=== PATIENT | female | born 1960 | race Caucasian/White ===

== ENCOUNTER → 2020-09-26 08:43 | Day surgery (SDC) | payer OTHER ==
--- NOTE | 2020-09-25 10:48 | NUR ---
CONFIRMED PT RIGHT HIP INJECTION 09/26/20 PT HAS MRI SCHEDULED FOR 829 ALSO
--- NOTE | ~2020-09-26 | HEMODYNAMI ---
PATIENT:JUANITA ARENAS MEDICAL RECORD: [id number] : 64 LOCATION:[facility] ADMISSION DATE: 09/26/20 Generatedon:110:55 Patient name: JUANITA ARENAS Patient #: [id number] SSN: : 1960 Date of study: 09/26/2020 Page: Of Hemodynamic Procedure Report Patient Data Patient Demographics Procedure consent was obtained First Name: JUANITA Gender: Female Last Name: DAGOBERTO : 1960 Middle Initial: EMILY Age: 59 year(s) Patient #: [id number] Race: Unknown Additional ID: [id number] Contact details [address]: [address] [place] [address] State: [place] City: [place] Zip code: [address] Admission Admission Data Admission Date: 09/26/2020 Admission Time: 8:43 Procedure Procedure Types Cath Procedure Peripheral Cath Diagnostic Procedure Miscellaneous Procedure Description Procedure Date Procedure Date: 09/26/2020 Procedure Start Time: 10:45 Procedure Staff Name Function Lucille Tracey MD Performing Physician Qamar Grace RT Monitor Procedure Data Cath Procedure Fluoroscopy Diagnostic fluoroscopy Total fluoroscopy Time: 0.4 time: 0.4 min min Diagnostic fluoroscopy Total fluoroscopy dose: 4 dose: 4 mGy mGy Hemodynamics Rest Pre Cath Intra NCS Post Cath Procedure Log Time Note 10:38:00 Qamar Grace RT (R) (CV) sent for patient. Start room use. 10:38:07 Time tracking: Regular hours (M-F 7:00 - 5:00) 10:38:12 Patient received from Other to IR Alert and oriented. Tansferred to table in Supine position. 10:38:14 Signed procedure consent form obtained from patient. 10:38:16 Correct patient and procedure confirmed by team. 10:38:18 Full Disclosure recording started 10:38:18 - 10:38:20 Pre-procedure instructions explained to patient. 10:38:21 Pre-op teaching completed and patient verbalized understanding. 10:38:26 Is patient on blood thinner?No 10:38:53 PT ALLERGIC TO REGLAN,SULFA BIAXCIN AND ARYTHROMYCIN 10:39:04 Right Hip was prepped with chlora-prep and draped in sterile fashion. 10:39:22 SAFE-T PLUS MYELOGRAM TRAY opened to sterile field. 10:45:10 Physician arrived 10:45:11 --------ALL STOP TIME OUT------ 10:45:11 Final Timeout: patient, procedure, and site verified with staff and physician. All members of the team are in agreement. 10:45:13 Right groin site verified by team. 10:45:20 Sedation plan: Local Anesthetic Medication:Lidocaine 10:45:32 Procedure started. 10:45:38 Local anesthetic to Right Hip with Lidocaine 1% by Lucille Tracey MD.INITIA L ACCESS ONLY 10:54:35 Procedure ended.(Physican Out) 10:54:52 BANDAIDE APPLIED SITE STABLE PT SENT HOME 10:55:05 Fluoroscopy time 00.40 minutes. 10:55:09 Fluoroscopy dose: 4 mGy 10:55:09 Flurop Dose total: 4 Device Usage Item Name Manufacture Quantity Catalog Hospital Part Current Minimal Lot# / Number Charge Number Stock Stock Serial# Code SAFE-T [employer] 1 [id number] PLUS MYELOGRAM TRAY Signature Audit [place] Stage Time Signature Unsigned Intra-Procedure 09/26/2020 Qamar 10:55:33 AM Sanjay RT (R) (CV) [facility] [address] [place] [address]
== END | disposition home or self-care (01) ==
LOC: D.RAD 08:43
PROVIDERS: ATTEND Orthopaedic Surgery
DX: M25.851 Other specified joint disorders, right hip (principal); S83.241A Other tear of medial meniscus, current injury, right knee, initial encounter